=== PATIENT | female | born 2000 | race Caucasian/White ===

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

== ENCOUNTER 2018-03-26 12:47 | Emergency (ER) | payer OTHER ==
--- NOTE | 2018-03-26 14:09 | EDPHY ---
General Time Seen by Provider: 03/26/18 13:57 Narrative: CHIEF COMPLAINT: Rectal bleeding, hemorrhoids HISTORY OF PRESENT ILLNESS: Patient presents by private vehicle with complaints of rectal bleeding and hemorrhoids. She reports that she was given doxycycline that she completed 2 weeks ago for unrelated complaints. She reports feeling nauseated on the medication, thus she was given Zofran. She feels that this the hot surgeon become constipated. She became constipated past 4 days he has had some rectal pain while having a bowel movement. She also has some pain at rest, some itching and some mild bleeding over the past 24 hr. She has no abdominal pain. No fever. No anticoagulation use. No bleeding from any other site. She has been trying [id number] witch Doreen an [id number] preparation H cream with minimal improvement. No other associated complaints or modifying factors REVIEW OF SYSTEMS: 10 systems were reviewed and negative with the exception of the elements mentioned in the history of present illness. PCP: [facility] SPECIALISTS: None PAST MEDICAL HISTORY: Hypothyroid, depression, anxiety, Lyme disease PAST SURGICAL HISTORY: No surgical history SOCIAL HISTORY: Nonsmoker. [employer] student. Originally from [place] FAMILY HISTORY: Noncontributory EXAMINATION: Vitals: Triage VS reviewed General Appearance: Alert, no distress. Ambulatory well-appearing. Head: normocephalic, atraumatic Eyes: Pupils equal and round, no conjunctival pallor or injection ENT, Mouth: Mucous membranes moist. No bleeding. Cardiovascular: Regular rate with good signs of perfusion distally. Gastrointestinal: Abdomen is soft and nontender no tympany rigidity. No guarding. Bowel sounds present all 4 quadrants Rectal: Female RN (Ellen) present for exam. There is a nonbleeding, nonthrombosed hemorrhoid at 12:00 p.m. Position. No in official. Skin: Warm and dry, no rash. No perianal abscess, cellulitis or abnormality. Extremities: Nontender, no pedal edema Psychiatric: Mood and affect normal DIFFERENTIAL DIAGNOSES: Including but not limited to external hemorrhoid, internal hemorrhoid, anal fissure, lower GI bleed MDM: 1:55 p.m. External hemorrhoid at the 12 o'clock position that is non thrombosed. No fissure that I can appreciate. Benign abdominal examination. Patient may have an internal hemorrhoid that is bleeding is well that anoscopy is deferred. She has no abdominal findings concerning. She has normal vital signs with no evidence of acute blood-loss anemia by history examination. We discuss transitioning to prescription Anucort. I also recommended that she start MiraLax daily and a 1 time magnesium citrate today. We discussed follow up with general surgeon for definitive care of the hemorrhoid. We discussed ED precautions for persistent bleeding, abdominal pain or constipation. She is comfortable this plan. Discharged home stable condition. SUPERVISION: This patient was independently evaluated without direct involvement of or examination by the attending physician. CONSULTATION: None - History Smoking Status: Never smoked - Objective Vital Signs: Initial Vital Signs Temperature (C) 98.6 F 03/26/18 13:00 Heart Rate 64 03/26/18 13:00 Respiratory Rate 16 03/26/18 13:00 Blood Pressure 134/87 H 03/26/18 13:00 O2 Sat (%) 97 03/26/18 13:00 O2 Delivery Mode Room Air Allergies/Adverse Reactions: Penicillins Allergy (Unknown, Verified 03/26/18 13:03) Hives capsaicin [pepper] Allergy (Verified 03/26/18 13:03) Home Medications: Medication Instructions Recorded Escitalopram Oxalate [Lexapro] 15 mg PO DAILY 06/12/17 Ibuprofen [Motrin (*)] 200 - 600 mg PO DAILY PRN 06/12/17 Lomedia Control 1 tab PO DAILY 06/12/17 Multivitamins W-Minerals [Thera M 1 each PO DAILY 06/12/17 Plus Tablet (*)] Hydrocortisone Acetate [Anucort-Hc] 25 mg RC BID #10 supp.rect 03/26/18 Synthroid 03/26/18 Departure - Departure Disposition: Home, Routine, Self-Care Clinical Impression: External hemorrhoid Condition: Good Instructions: Hemorrhoids (ED) Additional Instructions: 1. Anusol as prescribed 2. Witch Doreen topically as needed 3. Increase fluid intake 4. Magnesium citrate [id number], 1/2 bottle. Wait 4 hr and drink the remainder of the bottle with no bowel movement 5. MiraLax 1 packet daily 6. Colace twice daily as needed 7. Follow up with general surgeon for definitive care as needed Referrals: Nic Beintez MD [Medical Doctor] - As per Instructions [facility] [[facility]] - As per Instructions Stand Alone Forms: School Excuse Prescriptions: Hydrocortisone Acetate [Anucort-Hc] 25 mg RC BID #10 supp.rect
[2018-03-26 14:25] VITALS: BP 117/78
== END 2018-03-26 14:23 | disposition home or self-care (01) ==
DX: K64.4 Residual hemorrhoidal skin tags (principal); E03.9 Hypothyroidism, unspecified; F41.9 Anxiety disorder, unspecified; F32.9 Major depressive disorder, single episode, unspecified; Z88.0 Allergy status to penicillin